=== PATIENT | female | born 1975 | race Caucasian/White ===

== ENCOUNTER 2017-03-02 15:35 | Observation (INO) | payer SELFPAY ==
[~2017-03-02] VITALS: Ht 170.2 cm; Wt 58.0 kg
[~2017-03-02 15:35] MED LIST: ASPI81TA82 PO; B12-1CHW CHEW; CYCL-36 PO; FIORIC PO; LORTA5 PO; LOVA40TA PO; PROT40TA PO; RANITAB PO; SYNT200T PO; TOPI25CA PO; ZOLP10TA3 PO
[2017-03-02 15:36] VITALS: BP 131/78; PULSE 90; RESP 17; TEMP 98.2; O2SAT 100
[2017-03-02 15:57] VITALS: BP 115/82; PULSE 82; RESP 18; O2SAT 100
--- NOTE | 2017-03-02 16:05 | PD ---
HPI Chief Complaint: Chest Pain Time Seen by Provider: 16:05 Travel History International Travel<30 days: No Contact w/Intl Traveler<30days: No Traveled to known affect area: No History of Present Illness HPI 41-year-old female with a history of hyperlipidemia, migraine headaches, lupus presents to the emergency department for evaluation of left anterior chest pain that began yesterday. Patient states that her symptoms began last night. States that she had left anterior sharp chest pain for about an hour last night. States that today she's had intermittent episodes of left anterior sharp chest pain about 20 minutes at a time. Denies any associated symptoms of shortness of breath, difficulty breathing, lightheadedness, dizziness, nausea, vomiting, diaphoresis, fever, chills, cough or cold symptoms. Denies any radiation of pain. Denies any aggravating or alleviating factors. Denies any history of heart disease. States that she has a strong family history of cardiovascular disease with her father having had stents before the age of 50 and her mother having had multiple strokes before the age of 50. Patient has been smoking cigarettes for approximately 25 years. No other complaints. PFSH Past Medical History Arthritis: Yes Cancer: Yes (CERVICAL CA/ REMOVED) Cardiovascular Problems: Yes High Cholesterol: Yes Chemotherapy: No Cerebrovascular Accident: No Diabetes: No Endocrine: Yes Gastrointestinal Disorders: Yes GERD: Yes Genitourinary: Yes Headaches: Yes Immune Disorder: Yes (LUPUS 2000) Musculoskeletal: Yes Neurologic: Yes Psychiatric: No Respiratory: No Migraines: Yes Radiation Therapy: No Seizures: No Thyroid Disease: Yes ?: Not Menopausal: Yes Past Surgical History Abdominal Surgery: Yes (APPENDECTOMY) Appendectomy: Yes (1987) Cardiac Surgery: No Eye Surgery: No Genitourinary Surgery: No Gynecologic Surgery: Yes (HYSTERECTOMY) Hysterectomy: Yes (IN 1999) Oral Surgery: No Pacemaker: No Other Surgery: Yes Social History Alcohol Use: No Tobacco Use: Yes Substance Use: No Allergies-Medications (Allergen,Severity, Reaction): Coded Allergies: Haldol (Verified Allergy, Severe, ANAPHYLAXIS, 03/02/17) Bactrim (Verified Allergy, Intermediate, Nausea/Vomiting, 03/02/17) Doxycycline (Verified Adverse Reaction, Severe, VOMITING, 03/02/17) Erythromycin (Verified Adverse Reaction, Severe, VOMITING, 03/02/17) Penicillin (Verified Adverse Reaction, Severe, VOMITING, 03/02/17) Reported Meds & Prescriptions Reported Meds & Active Scripts Active Reported Flexeril (Cyclobenzaprine HCl) 10 Mg Tab 10 Mg PO HS Lovastatin 40 Mg Tab 40 Mg PO HS Pantoprazole (Pantoprazole Sodium) 40 Mg Tab 40 Mg PO DAILY Ranitidine (Ranitidine HCl) 150 Mg Tab 150 Mg PO BID Synthroid (Levothyroxine Sodium) 175 Mcg Tab 175 Mcg PO DAILY Topamax (Topiramate) 50 Mg Tab 50 Mg PO HS Topamax (Topiramate) 100 Mg Tab 100 Mg PO DAILY IN THE MORNING Gnp Melatonin Maximum Str (Melatonin) 5 Mg Tab 5 Mg PO HS Wellbutrin SR 12 HR (Bupropion HCl) 150 Mg Tab 150 Mg PO Q12HR Dklmbnaaqt-Yqudbtotoqwwv-Ebpzjmty 50-325-40 Mg Tab 1 Tab PO BID PRN Do not exceed 6 tablets/day. Review of Systems Except as stated in HPI: all other systems reviewed are Neg Physical Exam Narrative GENERAL: Well-nourished and well-developed pleasant patient in no acute distress who is nontoxic appearing. SKIN: Warm and dry. HEAD: Normocephalic and atraumatic. EYES: No injection, drainage, or hyphema noted. PERRLA. EOMI. ENT: No nasal drainage noted. Oropharynx is clear. NECK: Supple and the trachea is midline. CARDIOVASCULAR: Regular rate and rhythm. RESPIRATORY: Breath sounds are equal bilaterally with no accessory muscle use, wheezing, rhonchi, or crackles. GASTROINTESTINAL: Abdomen is soft, non-tender, and nondistended. MUSCULOSKELETAL: No obvious deformities, swelling, cyanosis, or ecchymosis is present throughout the upper and lower extremities. Patient has full range of motion without any signs of neurovascular compromise. NEUROLOGICAL: Awake, alert, and oriented. Normal speech and gait. Cranial nerves are grossly intact. Data Data Last Documented VS Vital Signs Date Time Temp Pulse Resp B/P Pulse Ox O2 Delivery O2 Flow Rate FiO2 03/02/17 15:57 82 18 115/82 100 Nasal Cannula 2 03/02/17 15:36 98.2 Orders Electrocardiogram (03/02/17 16:02) Ckmb (Isoenzyme) Profile (03/02/17 16:02) Complete Blood Count With Diff (03/02/17 16:02) Comprehensive Metabolic Panel (03/02/17 16:02) Magnesium (Mg) (03/02/17 16:02) Prothrombin Time / Inr (Pt) (03/02/17 16:02) Act Partial Throm Time (Ptt) (03/02/17 16:02) Troponin I (03/02/17 16:02) Chest, Single Ap (03/02/17 16:02) Ecg Monitoring (03/02/17 16:02) Bilateral Bp Monitoring (03/02/17 16:02) Iv Access Insert/Monitor (03/02/17 16:02) Oximetry (03/02/17 16:02) Sodium Chloride 0.9% Flush (Ns Flush) (03/02/17 16:15) CKMB (03/02/17 16:08) CKMB% (03/02/17 16:08) Admit Order (Ed Use Only) (03/02/17 17:42) Activity Bed Rest With Brp (03/02/17 17:42) Vital Signs (Adult) Q4H (03/02/17 17:42) Cardiac Rhythm .As Directed (03/02/17 17:42) Notify Dr: Other .PRN (03/02/17 17:42) Notify Dr. Parameters (03/02/17 17:42) Resp Oxygen Nasal Cannula (03/02/17 ) Diet Npo (03/03/17 Breakfast) Ckmb (Isoenzyme) Profile (03/02/17 18:12) Ckmb (Isoenzyme) Profile (03/02/17 21:12) Troponin I (03/02/17 18:12) Troponin I (03/02/17 21:12) Electrocardiogram (03/02/17 17:42) Electrocardiogram (03/02/17 20:42) ^ Obtain (03/02/17 17:42) Sodium Chloride 0.9% Flush (Ns Flush) (03/02/17 17:45) Sodium Chloride 0.9% Flush (Ns Flush) (03/02/17 21:00) Acetaminophen (Tylenol) (03/02/17 17:45) Court Specialist / Telemetry NICK.Q8H (03/02/17 17:42) Labs Laboratory Tests Test 03/02/17 16:08 White Blood Count 9.5 TH/MM3 Red Blood Count 4.54 MIL/MM3 Hemoglobin 14.0 GM/DL Hematocrit 40.4 % Mean Corpuscular Volume 89.0 FL Mean Corpuscular Hemoglobin 30.8 PG Mean Corpuscular Hemoglobin 34.6 % Concent Red Cell Distribution Width 12.8 % Platelet Count 304 TH/MM3 Mean Platelet Volume 8.4 FL Neutrophils (%) (Auto) 69.3 % Lymphocytes (%) (Auto) 25.9 % Monocytes (%) (Auto) 3.4 % Eosinophils (%) (Auto) 0.8 % Basophils (%) (Auto) 0.6 % Neutrophils # (Auto) 6.6 TH/MM3 Lymphocytes # (Auto) 2.5 TH/MM3 Monocytes # (Auto) 0.3 TH/MM3 Eosinophils # (Auto) 0.1 TH/MM3 Basophils # (Auto) 0.1 TH/MM3 CBC Comment DIFF FINAL Differential Comment Prothrombin Time 10.7 SEC Prothromb Time International 1.0 RATIO Ratio Activated Partial 26.8 SEC Thromboplast Time Sodium Level 142 MEQ/L Potassium Level 3.6 MEQ/L Chloride Level 103 MEQ/L Carbon Dioxide Level 30.3 MEQ/L Anion Gap 9 MEQ/L Blood Urea Nitrogen 17 MG/DL Creatinine 0.88 MG/DL Estimat Glomerular Filtration 70 ML/MIN Rate Random Glucose 90 MG/DL Calcium Level 9.1 MG/DL Magnesium Level 2.3 MG/DL Total Bilirubin 0.2 MG/DL Aspartate Amino Transf 17 U/L (AST/SGOT) Alanine Aminotransferase 31 U/L (ALT/SGPT) Alkaline Phosphatase 80 U/L Total Creatine Kinase 152 U/L Creatine Kinase MB 1.0 NG/ML Troponin I LESS THAN 0.02 NG/ML Total Protein 7.5 GM/DL Albumin 4.0 GM/DL [facility] Medical Decision Making Medical Screen Exam Complete: Yes Emergency Medical Condition: Yes Differential Diagnosis Chest wall pain versus pleurisy versus ACS versus costochondritis Narrative Course 41-year-old female presents to the emergency department for evaluation of chest pain. Patient is afebrile, vital signs are stable. Physical examination is unremarkable. IV access was obtained, labs were drawn and sent. Patient is placed on cardiac telemetry and pulse oximetry monitoring. EKG shows sinus rhythm with no acute ST elevations or depressions. Already took 2 Excedrin tablets today containing 250 mg of aspirin each. CBC is unremarkable. CMP is unremarkable. Troponin is less than 0.02. Coags are unremarkable. Chest x-ray is negative for any acute abnormalities. Patient has remained stable and without complaint or here in the emergency department. Patient will be admitted to chest pain center for repeat cardiac enzymes, EKGs and possible stress testing. Patient verbalizes understanding and is in agreement with treatment plan. I discussed the case with my attending physician Dr. Tyler who is aware of the patients history, physical examination findings, and treatment plan. Diagnosis Primary Impression: Chest pain Qualified Code: R07.9 - Chest pain, unspecified type Admitting Information Admitting Physician Requests: Jenelle Lozano Mar 02, 2017 16:05
[2017-03-02] MEDS ORDERED: SODIUM CHLORIDE 0.9% FLUSH 10 ML FLUSH IVF PRN (16:15)
[2017-03-02 16:32] LABS: AUTOMATED NEUTROPHIL # 6.6 TH/MM3 (1.8-7.7); BASOPHIL # 0.1 TH/MM3 (0-0.2); BASOPHIL % 0.6 % (0.0-2.0); EOSINOPHIL # 0.1 TH/MM3 (0-0.4); EOSINOPHIL % 0.8 % (0.0-4.0); HEMATOCRIT 40.4 % (35.0-46.0); HEMO FLAGS DIFF FINAL; LYMPH % 25.9 % (9.0-44.0); LYMPHOCYTE # 2.5 TH/MM3 (1.0-4.8); MEAN CORPUSCULAR HEMOGLOBIN 30.8 PG (27.0-34.0); MEAN CORPUSCULAR HGB CONC 34.6 % (32.0-36.0); MONO % 3.4 % (0.0-8.0); NEUT % 69.3 % (16.0-70.0); PLATELET COUNT 304 TH/MM3 (150-450); RED BLOOD COUNT 4.54 MIL/MM3 (4.00-5.30); RED CELL DISTRIBUTION WIDTH 12.8 % (11.6-17.2); WHITE BLOOD COUNT 9.5 TH/MM3 (4.0-11.0)
--- NOTE | 2017-03-02 16:37 | RADRPT ---
EXAM DATE/TIME: 03/02/2017 16:15 [facility] COMPARISON: CT THORAX W CONTRAST, September 26, 2013, 20:49. INDICATIONS : Chest pain. MEDICAL HISTORY : Myocardial infarction. high blood pressure SURGICAL HISTORY : Hysterectomy. ENCOUNTER: Initial ACUITY: 1 day PAIN SCORE: 3/10 LOCATION: Bilateral chest FINDINGS: A single view of the chest demonstrates the lungs to be symmetrically aerated without evidence of mas s, infiltrate or effusion. The cardiomediastinal contours are unremarkable. Osseous structures are intact. CONCLUSION: 1. No acute cardiopulmonary disease. Lucio Martinez MD on March 02, 2017 at 16:33 Board Certified Radiologist. This report was verified electronically.
[2017-03-02 16:43] LABS: APTT (PATIENT) 26.8 SEC (24.3-30.1); PROTHROMBIN TIME - PATIENT 10.7 SEC (9.8-11.6)
[2017-03-02 16:53] LABS: ALT (GPT) 31 U/L (10-53); ANION GAP 9 MEQ/L (5-15); AST (GOT) 17 U/L (15-37); BICARBONATE 30.3 MEQ/L (21.0-32.0); BLOOD UREA NITROGEN 17 MG/DL (7-18); CHLORIDE 103 MEQ/L (98-107); GLOMERULAR FILTRATION RATE 70 ML/MIN (>89); MAGNESIUM 2.3 MG/DL (1.5-2.5); POTASSIUM 3.6 MEQ/L (3.5-5.1); SODIUM (NA) 142 MEQ/L (136-145)
[2017-03-02 17:00] LABS: ALKALINE PHOSPHATASE 80 U/L (45-117); CREATINE KINASE 152 U/L (26-192); TOTAL BILIRUBIN ADULT 0.2 MG/DL (0.2-1.0)
[2017-03-02] MEDS ORDERED: TOPA100T11 PO (17:28)
[2017-03-02] MEDS ORDERED: GNP5TAB6 PO (17:28)
[2017-03-02] MEDS ORDERED: TOPA50TA7 PO (17:28)
[2017-03-02] MEDS ORDERED: BUPR150CR PO (17:28)
[2017-03-02] MEDS ORDERED: BUTATAB6 PO (17:28)
[2017-03-02] MEDS ORDERED: RANI150T PO (17:31)
[2017-03-02] MEDS ORDERED: SYNT175T PO (17:31)
[2017-03-02] MEDS ORDERED: LOVA40TA PO (17:33)
[2017-03-02] MEDS ORDERED: CYCL1TAB29 PO (17:33)
[2017-03-02] MEDS ORDERED: PANT40TA3 PO (17:33)
[2017-03-02] MEDS ORDERED: ACETAMINOPHEN 500 MG CPLT PO PRN (17:45)
[2017-03-02] MEDS ORDERED: SODIUM CHLORIDE 0.9% FLUSH 10 ML FLUSH IV FLUSH PRN (17:45)
[2017-03-02 19:04] VITALS: BP 114/78; PULSE 77; RESP 22; TEMP 98.5; O2SAT 99
[2017-03-02] MEDS ORDERED: MORPHINE SULFATE 4 MG/ML INJ IV ONE (19:30)
[2017-03-02 19:31] LABS: CREATINE KINASE 101 U/L (26-192)
[2017-03-02 19:44] LABS: CKMB 0.7 NG/ML (0.5-3.6)
[2017-03-02] MEDS: SODIUM CHLORIDE 0.9% FLUSH 10 ML FLUSH IV FLUSH SCH (20:10)
[2017-03-02 20:17] VITALS: O2SAT 96
[2017-03-02] MEDS ORDERED: ACETAMIN 325 MG/BUTALBITAL 50 MG/CAFFEINE 40 MG TAB PO ONE (21:45)
[2017-03-02 22:53] LABS: CREATINE KINASE 91 U/L (26-192)
[2017-03-02 23:55] VITALS: BP 103/65; PULSE 62; RESP 20; TEMP 97.8; O2SAT 97
[2017-03-03] MEDS: MORPHINE SULFATE 4 MG/ML INJ IV PRN ×2 (02:06→08:35)
[2017-03-03 04:18] VITALS: PULSE 54
[2017-03-03 04:19] VITALS: BP 93/64; PULSE 60; RESP 20; TEMP 97.6; O2SAT 98
[2017-03-03 07:30] VITALS: O2SAT 95
[2017-03-03 07:34] VITALS: BP 96/63; PULSE 56; RESP 17; TEMP 98; O2SAT 96
[2017-03-03 08:34] VITALS: PULSE 50
[2017-03-03] MEDS: SODIUM CHLORIDE 0.9% FLUSH 10 ML FLUSH IV FLUSH SCH (08:34)
--- NOTE | 2017-03-03 09:58 | HHI.HP ---
HPI Primary Care Physician Non-Staff Chief Complaint Chest pain History of Present Illness This is a 41-year-old female that presents to the ED complaining of 2 days of chest discomfort the last about 45 minutes each. Initially they were at nighttime she falsely plan. The discomfort was there again yesterday morning and lasted 45 minutes. Denies shortness breath, nausea, or diaphoresis. Cannot recall prior stress testing. She is concerned saying that she has family history of CAD. Review of Systems General: Patient denies fevers, chills recent, and recent travel HEENT: Patient denies headache, sore throat, difficulty swallowing. Cardiovascular: Has the chest discomfort as mentioned above. Denies sensation of heart beating rapidly or irregularly. No syncope. Denies diaphoresis. Respiratory: Denies shortness of breath or inspirational chest discomfort. Denies coughing wheezing or hemoptysis. GI: Patient denies nausea, vomiting, diarrhea, abdominal pain, bloody stools. Musculoskeletal: Patient denies joint pain or edema. Denies calf pain or edema. Neurovascular: Patient denies numbness, tingling, weakness in extremities. Denies headache. Endocrine: Denies polyuria and polydipsia. Hematologic: Denies easy bruising. Skin: Denies rash or itching. Past Family Social History Allergies: Coded Allergies: Haldol (Verified Allergy, Severe, ANAPHYLAXIS, 03/02/17) Bactrim (Verified Allergy, Intermediate, Nausea/Vomiting, 03/02/17) Doxycycline (Verified Adverse Reaction, Severe, VOMITING, 03/02/17) Erythromycin (Verified Adverse Reaction, Severe, VOMITING, 03/02/17) Penicillin (Verified Adverse Reaction, Severe, VOMITING, 03/02/17) Past Medical History Lupus and hyperlipidemia. Denies diabetes, CAD, and hypertension. Past Surgical History Hysterectomy and appendectomy. Reported Medications Reported Meds & Active Scripts Active Reported Flexeril (Cyclobenzaprine HCl) 10 Mg Tab 10 Mg PO HS Lovastatin 40 Mg Tab 40 Mg PO HS Pantoprazole (Pantoprazole Sodium) 40 Mg Tab 40 Mg PO DAILY Ranitidine (Ranitidine HCl) 150 Mg Tab 150 Mg PO BID Synthroid (Levothyroxine Sodium) 175 Mcg Tab 175 Mcg PO DAILY Topamax (Topiramate) 50 Mg Tab 50 Mg PO HS Topamax (Topiramate) 100 Mg Tab 100 Mg PO DAILY IN THE MORNING Gnp Melatonin Maximum Str (Melatonin) 5 Mg Tab 5 Mg PO HS Wellbutrin SR 12 HR (Bupropion HCl) 150 Mg Tab 150 Mg PO Q12HR Bxuqynywue-Zuzykfsrmtdcy-Krxnigxv 50-325-40 Mg Tab 1 Tab PO BID PRN Do not exceed 6 tablets/day. Active Ordered Medications Current Medications Medications (Trade) Dose Ordered Sig/Cuate Route Start Time Stop Time Status Last Admin (NS Flush) 2 ml UNSCH PRN IV FLUSH 03/02/17 17:45 (NS Flush) 2 ml BID IV FLUSH 03/02/17 21:00 03/03/17 08:34 (Tylenol) 500 mg Q4H PRN PO 03/02/17 17:45 03/02/17 20:15 (Morphine Inj) 4 mg Q4H PRN IV 03/02/17 19:30 03/03/17 08:35 Family History Her mother father have CAD. Social History Patient smokes cigarettes. Denies alcohol or illicit drugs. Physical Exam Vital Signs Vital Signs Date Time Temp Pulse Resp B/P Pulse Ox O2 Delivery O2 Flow Rate FiO2 03/03/17 07:34 98.0 56 17 96/63 96 03/03/17 07:30 95 21 03/03/17 04:19 97.6 60 20 93/64 98 03/03/17 04:18 54 03/02/17 23:55 97.8 62 20 103/65 97 03/02/17 21:20 18 03/02/17 20:39 18 03/02/17 20:17 96 03/02/17 19:04 98.5 77 22 114/78 99 03/02/17 15:57 82 18 115/82 100 Nasal Cannula 2 03/02/17 15:54 18 100 Room Air 03/02/17 15:36 98.2 90 17 131/78 100 Physical Exam GENERAL: This is a well-nourished, well-developed patient, in no apparent distress. Patient speaks in clear complete sentences. Patient is pleasant. HEENT: Head is atraumatic and normocephalic. Neck is supple without lymphadenopathy and trachea is midline. No JVD or carotid bruits. CARDIOVASCULAR: Regular rate and rhythm without murmurs, gallops, or rubs. RESPIRATORY: Clear to auscultation. Breath sounds equal bilaterally. No wheezes , rales, or rhonchi. Chest wall is nontender. No use of accessory muscles. GASTROINTESTINAL: Abdomen is nontender, nondistended. Abdomen soft. No obvious pulsatile mass or bruit. No CVA tenderness. Strong femoral pulses bilaterally. Normal bowel sounds in all quadrants. MUSCULOSKELETAL: Patient is moving upper and lower extremities freely. No calf tenderness or edema, no Homans sign. Strong pulses in upper and lower extremities. NEUROLOGICAL: Patient is alert and oriented. Cranial nerves 2-12 are grossly intact. No focal deficits and speech is clear. SKIN: No rash and turgor is normal. Laboratory Laboratory Tests Test 03/02/17 03/02/17 03/02/17 16:08 18:55 21:57 White Blood Count 9.5 Red Blood Count 4.54 Hemoglobin 14.0 Hematocrit 40.4 Mean Corpuscular Volume 89.0 Mean Corpuscular Hemoglobin 30.8 Mean Corpuscular Hemoglobin 34.6 Concent Red Cell Distribution Width 12.8 Platelet Count 304 Mean Platelet Volume 8.4 Neutrophils (%) (Auto) 69.3 Lymphocytes (%) (Auto) 25.9 Monocytes (%) (Auto) 3.4 Eosinophils (%) (Auto) 0.8 Basophils (%) (Auto) 0.6 Neutrophils # (Auto) 6.6 Lymphocytes # (Auto) 2.5 Monocytes # (Auto) 0.3 Eosinophils # (Auto) 0.1 Basophils # (Auto) 0.1 CBC Comment DIFF FINAL Differential Comment Prothrombin Time 10.7 Prothromb Time International 1.0 Ratio Activated Partial 26.8 Thromboplast Time Sodium Level 142 Potassium Level 3.6 Chloride Level 103 Carbon Dioxide Level 30.3 Anion Gap 9 Blood Urea Nitrogen 17 Creatinine 0.88 Estimat Glomerular Filtration 70 Rate Random Glucose 90 Calcium Level 9.1 Magnesium Level 2.3 Total Bilirubin 0.2 Aspartate Amino Transf 17 (AST/SGOT) Alanine Aminotransferase 31 (ALT/SGPT) Alkaline Phosphatase 80 Total Creatine Kinase 152 101 91 Creatine Kinase MB 1.0 0.7 Troponin I LESS THAN 0.02 LESS THAN 0.02 LESS THAN 0.02 Total Protein 7.5 Albumin 4.0 Result Diagram: 03/02/17 1608 03/02/17 1608 Imaging Last 48 hours Impressions Chest X-Ray 03/02/17 1602 Signed Impressions: Service Date/Time: [place], March 02, 2017 16:15 - CONCLUSION: 1. No acute cardiopulmonary disease. Lucio Martinez MD Course EKGs have sinus bradycardia with nonspecific anterior lateral T-wave changes. Assessment and Plan Assessment and Plan * Chest pain: Patient has had serial cardiac enzymes and EKGs for ruling out purposes. She has been seen by Dr. Denson cardiology in the chest pain center. Patient declines walking on the treadmill and subsequent we will have a Lexiscan. She'll be discharged home if her stress test was nonischemic. She should follow-up with her primary care physician. * Hyperlipidemia: Continue current medication. Patient is stable at this time. She is agreeable to this plan. Bobby Sands Mar 03, 2017 09:58
[2017-03-03] MEDS ORDERED: REGADENOSON INJ 0.4 MG/5 ML SYR ONE (11:22)
--- NOTE | 2017-03-03 13:16 | RADRPT ---
EXAM DATE/TIME: 03/03/2017 11:04 [facility] COMPARISON: No previous studies available for comparison. INDICATIONS : Chest pain. Angina. DOSE: 25.8 mCi Tc99m Myoview at stress. 8.0 mCi Tc99m Myoview at rest. 0.4 mg Lexiscan STRESS SYMPTOMS: Headache and nausea. EJECTION FRACTION: > 70% MEDICAL HISTORY : Carcinoma, not otherwise specified. Hypertension. Lupus. Smoker. SURGICAL HISTORY : Hysterectomy. Appendectomy. ENCOUNTER: Initial ACUITY: 1 day PAIN SCALE: 0/10 LOCATION: chest TECHNIQUE: The patient underwent pharmacologic stress with infusion of prescribed dose. Continuous ECG tracing was monitored during stress. Gated SPECT imaging was performed after stress and conventional SPECT i maging was performed at rest. The examination was performed on a SPECT/CT scanner, both attenuation and non-corrected datasets were reviewed. FINDINGS: DISTRIBUTION: The maximum perfused segment at stress is in the lateral wall. PERFUSION STUDY: The pattern of perfusion at stress is within normal limits. GATED STUDY: There is intact wall motion and thickening without hypokinetic or dyskinetic segments. CONCLUSION: No reversible defects observed to suggest acute ischemia. RISK CATEGORY: Low Ren Fraser Jr., MD on March 03, 2017 at 13:12 Board Certified Radiologist. This report was verified electronically.
--- NOTE | 2017-03-03 13:49 | HHI.DCPOC ---
Discharge Care Plan Diagnosis: (1) Chest pain (2) Hyperlipidemia (3) GERD (gastroesophageal reflux disease) Goals to Promote Your Health * To prevent worsening of your condition and complications * To maintain your health at the optimal level Directions to Meet Your Goals Take your medications as prescribed Follow your dietary instruction Follow activity as directed Keep your appointments as scheduled Take your immunizations and boosters as scheduled If your symptoms worsen call your PCP, if no PCP go to Urgent Care Center or Emergency Room Smoking is Dangerous to Your Health. Avoid second hand smoke Call the 24-hour hour crisis hotline for domestic abuse at Bobby Sands Mar 03, 2017 13:49
--- NOTE | 2017-03-03 14:48 | EKG ---
Date Performed: 03/03/2017 Time Performed: 08:49:47 PTAGE: 41 years EKG: SINUS BRADYCARDIA SEPTAL MYOCARDIAL INFARCTION MODERATE T-WAVE ABNORMALITY, CONSIDER KODY LATERAL ISCHEMIA MODERATE T-WAVE ABNORMALITY, CONSIDER INFERIOR ISCHEMIA ABNORMAL ECG PREVIOUS TRACING : 03/02/2017 22.09 Compared to prior tracing no significant change DOCTOR: Jj Jean Interpretating Date/Time 03/03/2017 14:48:00
--- NOTE | 2017-03-03 17:19 | EKG ---
Date Performed: 03/02/2017 Time Performed: 22:09:57 PTAGE: 41 years EKG: SINUS BRADYCARDIA SEPTAL MYOCARDIAL INFARCTION MODERATE T-WAVE ABNORMALITY, CONSIDER KODY LATERAL ISCHEMIA MODERATE T-WAVE ABNORMALITY, CONSIDER INFERIOR ISCHEMIA ABNORMAL ECG Since PREVIOUS TRACING , no significant change noted PREVIOUS TRACIN03/02/2017 22.09 DOCTOR: Diana Denson Interpretating Date/Time 03/03/2017 17:17:47
--- NOTE | 2017-03-03 17:25 | EKG ---
Date Performed: 03/02/2017 Time Performed: 15:53:00 PTAGE: 41 years EKG: Sinus rhythm POSSIBLE RIGHT VENTRICULAR CONDUCTION DELAY LEFT ANTERIOR FASCICULAR BLOCK SEPTAL MYOCARDIAL INFARCT ION MODERATE T-WAVE ABNORMALITY, CONSIDER ANTERIOR ISCHEMIA ABNORMAL ECG NO PREVIOUS TRACING DOCTOR: Diana Denson Interpretating Date/Time 03/03/2017 17:24:20
--- NOTE | 2017-03-03 17:26 | EKG ---
Date Performed: 03/02/2017 Time Performed: 19:06:47 PTAGE: 41 years EKG: SINUS BRADYCARDIA SEPTAL MYOCARDIAL INFARCTION MODERATE T-WAVE ABNORMALITY, CONSIDER KODY LATERAL ISCHEMIA MODERATE T-WAVE ABNORMALITY, CONSIDER INFERIOR ISCHEMIA ABNORMAL ECG Since PREVIOUS TRACING , no significant change noted DOCTOR: Diana Denson Interpretating Date/Time 03/03/2017 17:25:11
[2017-03-03] MEDS ORDERED: FAMOTIDINE 20 MG TAB PO SCH (21:00)
[2017-03-03] MEDS ORDERED: PRAVASTATIN SOD 40 MG TAB PO SCH (21:00)
[2017-03-03] MEDS ORDERED: CYCLOBENZAPRINE HCL 10 MG TAB PO SCH (21:00)
[2017-03-03] MEDS ORDERED: buPROPion HCL 150 MG SUSTAINED RELEASE TAB PO SCH (21:00)
[2017-03-03] MEDS ORDERED: TOPIRAMATE 25 MG TAB PO SCH (21:00)
[2017-03-04] MEDS ORDERED: LEVOTHYROXINE SODIUM 100 MCG TAB PO SCH (06:00)
[2017-03-04] MEDS ORDERED: LEVOTHYROXINE SODIUM 75 MCG TAB PO SCH (06:00)
[2017-03-04] MEDS ORDERED: PANTOPRAZOLE SOD 40 MG DELAYED RELEASE TAB PO SCH (09:00)
--- NOTE | 2017-03-04 17:05 | TR ---
Date Performed: 03/03/2017 Time Performed: 11:42:11 DOCTOR: Diana Denson DRUG LIST: CLINICAL HISTORY: REASON FOR TEST: REASON FOR ENDING: OBSERVATION: CONCLUSION: Lexiscan stress test was performed under standard four minute protocol. Radionuclid e was injected one minute prior to ending the test. No electrocardiographic abormalities were present to suggest ischemia. Nuclear imaging and interpretation are pending. COMMENTS:
== END 2017-03-03 15:06 | disposition home or self-care (01) ==
LOC: NEPC 15:35 → NEDA 17:46 → NEPGCP 18:37
PROVIDERS: ADMIT Internal Medicine Interventional Cardiology; ATTEND Internal Medicine Interventional Cardiology
DX: R07.89 Other chest pain (principal); E78.5 Hyperlipidemia, unspecified; G43.909 Migraine, unspecified, not intractable, without status migrainosus; F17.210 Nicotine dependence, cigarettes, uncomplicated; M19.90 Unspecified osteoarthritis, unspecified site; E78.00 Pure hypercholesterolemia, unspecified; K21.9 Gastro-esophageal reflux disease without esophagitis; E07.9 Disorder of thyroid, unspecified; M32.9 Systemic lupus erythematosus, unspecified; Z82.49 Family history of ischemic heart disease and other diseases of the circulatory system; Z88.1 Allergy status to other antibiotic agents; Z88.0 Allergy status to penicillin; Z88.2 Allergy status to sulfonamides; Z88.8 Allergy status to other drugs, medicaments and biological substances; Z85.41 Personal history of malignant neoplasm of cervix uteri; Z86.2 Personal history of diseases of the blood and blood-forming organs and certain disorders involving the immune mechanism
CPT/HCPCS: 71010; 78452; 80053; 82550; 82552; 83735; 84484; 85025; 85610; 85730; 93005; 93017; 99285; A9502; G0378; J2270; J2785